=== PATIENT | male | born 1935 | race Caucasian/White ===

== ENCOUNTER 2018-04-12 18:23 | Emergency (ER) | payer OTHER, MEDICARE ==
[2018-04-12] MEDS: diphenhydrAMINE 50 MG Cap ONE (19:05)
--- NOTE | 2018-04-13 01:31 | ER ---
HISTORY OF PRESENT ILLNESS: The patient is an 82-year-old male who presents to the emergency room with a 1-day history of hand swelling and erythema. The patient went to bed last night after going fishing all day, felt fine, woke up this morning, his right hand was red and swollen. The patient notes he went fishing earlier in the day, but the redness and swelling has gradually increased. They marked an area on his wrist where it was red earlier and a couple of hours later, it had tracked in a linear fashion up the arm. The arm is hot, red, and swollen, but not particularly painful. The patient is afebrile. ALLERGIES: ASPIRIN AND PEACHES. CURRENT MEDICATIONS: He is on Xarelto for atrial fibrillation. He is on some other medication, but does not recall what it is or what it is for. He does have a pacemaker. He is allergic to aspirin. PHYSICAL EXAMINATION: GENERAL: He is alert, oriented, no apparent distress. HEENT: Generally unremarkable. LUNGS: Clear. HEART: Regular sinus rhythm today. EXTREMITIES: His right hand has some erythema and swelling on the dorsum and palm extending about a quarter way up to the forearm, and on the ventral aspect has an erythematous streak about half an inch wide extending about 3 inches up from the main area of erythema. Again, it is minimally tender, but it is definitely red and swollen. ASSESSMENT: Possible cellulitis versus an insect bite. PLAN: He has taken Benadryl already today. We did obtain a CBC which shows a normal white count of 9. His neutrophils are minimally elevated at 71%. We went ahead and gave him a cefuroxime 500 mg in the emergency room along with 50 mg of Benadryl. He is going to cigar packer and picker [id number] Benadryl. The patient is currently at a resort in [place], so there is no drugstore available to him, so we gave him 4 of the cefuroxime tablets. He is going back to [place] on Sunday and can stop at an all-day [facility] to cigar packer and picker the rest of his prescription, so he has enough to take until then. We did discuss that if for any reason the erythema is continuing after 24 to 48 hours to extend, he needs to return to the emergency room or if he develops a fever or any other symptoms. ANURAG/RAMANDEEP /[id number]
--- NOTE | 2018-05-27 08:38 | ER ---
ADDENDUM: FINAL DIAGNOSIS: Cellulitis. RD/MODL /[id number]
== END 2018-04-12 19:20 | disposition home or self-care (01) ==
LOC: LB.ED 18:23
DX: L03.113 Cellulitis of right upper limb (principal); I48.91 Unspecified atrial fibrillation; Z79.01 Long term (current) use of anticoagulants; Z88.8 Allergy status to other drugs, medicaments and biological substances; Z91.018 Allergy to other foods
CPT/HCPCS: 36415; 85025; 99283; A9270-GY